=== PATIENT | male | born 1945 | race Caucasian/White ===

== ENCOUNTER → 2017-09-30 | Outpatient (CLI) | payer OTHER ==
[~2017-09-30] MED LIST: COZAAR 50 MG TA50 M2 PO; LISINOPRIL10 MG PO; MOBIC15 MG PO; NORVASC5 MG PO; OMEPRAZOLE20 M2 PO; SERTRALINE HCL50 MG PO; TRIAMCINOLONE TOP; ULTRAM50 MG PO; XANAX 0.5 MG0.5 MG PO; ZOCOR20 MG PO
[2017-09-30 10:14] LABS: ABSOLUTE EOSINOPHILS 0.1 thou/uL (0.0-0.7); ABSOLUTE LYMPHOCYTES 1.8 thou/uL (0.8-5.3); ABSOLUTE MONOCYTES 0.5 thou/uL (0.0-1.2); ABSOLUTE NEUTROPHILS 3.4 thou/uL (1.6-8.1); BASOPHILS 0.8 %; HEMATOCRIT 43.8 % (42.0-52.0); HEMOGLOBIN 14.8 gm/dL (14.0-18.0); LYMPHOCYTES 30.6 %; MCH 29.9 pg (26.0-34.0); MCHC 33.9 g/dL (28.0-37.0); MCV 88.4 fL (80.0-100.0); MONOCYTES 8.8 %; MPV 7.6 fl. (7.2-11.1); NUCLEATED RBCS 0 /100WBC; PLATELET COUNT* 174 thou/uL (150-400); POLYS 58.8 %; RBC 4.95 mil/uL (4.50-6.00); RDW-CV 14.5 % (10.5-14.5); WBC 5.8 thou/uL (4.0-11.0)
[2017-09-30 10:25] LABS: ALBUMIN 3.7 g/dL (3.4-5.0); ALKALINE PHOSPHATASE 76 U/L (46-116); ANION GAP 10 mmol/L (7-16); BUN 13 mg/dL (7-18); CALCIUM 8.6 mg/dL (8.5-10.1); CHLORIDE 103 mmol/L (98-107); CHOLESTEROL 183 mg/dL (<200); CO2 28 mmol/L (21-32); GLUCOSE 144 mg/dL (70-99); HDL CHOLESTEROL 55 mg/dL (>40); LDL CHOLESTEROL 94 mg/dL (<100); POTASSIUM 4.3 mmol/L (3.5-5.1); SGOT 19 U/L (15-37); SGPT 28 U/L (30-65); SODIUM 141 mmol/L (136-145); TC:HDL 3.3 Ratio (Not establshd); TOTAL BILIRUBIN 0.7 mg/dL (<0.1-1.0); TOTAL PROTEIN 7.1 g/dL (6.4-8.2); TRIGLYCERIDE 174 mg/dL (<150); VLDL 35 mg/dL (<40)
[2017-09-30 10:26] LABS: SERUM ASSESSMENT Clear
== END ==
LOC: M.LAB 09:52
PROVIDERS: Internal Medicine
DX: I10 Essential (primary) hypertension (principal); R79.89 Other specified abnormal findings of blood chemistry

== ENCOUNTER 2020-12-25 11:29 | Emergency (ER) | payer OTHER ==
[~2020-12-25] VITALS: Ht 177.8 cm; Wt 122.5 kg
[2020-12-25 14:31] LABS: ABSOLUTE BASOPHILS 0.1 thou/uL (0.0-0.2); ABSOLUTE LYMPHOCYTES 1.6 thou/uL (0.8-5.3); ABSOLUTE MONOCYTES 0.4 thou/uL (0.0-1.2); ABSOLUTE NEUTROPHILS 4.4 thou/uL (1.6-8.1); BASOPHILS 0.8 %; EOSINOPHILS 0.6 %; HEMOGLOBIN 15.6 gm/dL (14.0-18.0); LYMPHOCYTES 24.8 %; MCHC 35.5 g/dL (28.0-37.0); MCV 87.2 fL (80.0-100.0); MONOCYTES 6.5 %; MPV 7.9 fl. (7.2-11.1); NUCLEATED RBCS 0 /100WBC; PLATELET COUNT* 182 thou/uL (150-400); POLYS 67.3 %; RBC 5.04 mil/uL (4.50-6.00); RDW-CV 14.7 % (10.5-14.5); WBC 6.6 thou/uL (4.0-11.0)
--- NOTE | 2020-12-25 14:36 | EKG ---
[place] [address] ELECTROCARDIOGRAM REPORT Name: MANUEL ARVIZU I Room: [facility]#: [id number] Admission: 12/25/20 Attend Phys: Discharge: Date of : 41 Date of Service: 12/25/20 1419 Report #: [id number] THIS REPORT FOR: //name// [facility] ED Test Date: 2020-12-25 Test Time: 14:19:05 Pat Name: MANUEL ARVIZU Department: Room: Gender: Brick Pointer: : 1945 Requested By: Manuel Self Order Number: [id number] MD: Daniel Padron Measurements Intervals [place] Rate: 55 P: 30 NM: 219 QRS: 82 QRSD: 119 T: 55 QT: 485 QTc: 464 Interpretive Statements Sinus rhythm Borderline prolonged NM interval Nonspecific intraventricular conduction delay Baseline wander in lead(s) I,II,aVR Compared to ECG 10/28/2016 15:16:54 no change Electronically Signed On 12-25-2020 14:36:25 CDT by Daniel Padron [email or web address] <ELECTRONICALLY SIGNED> By: Daniel Padron MD, FACC 12/25/20 1436 1419 1419 Daniel Padron MD, [facility] /EPI
[2020-12-25 15:35] LABS: CALCIUM 9.5 mg/dL (8.5-10.1); CREATININE 1.1 mg/dL (0.6-1.3); POTASSIUM 4.4 mmol/L (3.5-5.1)
[2020-12-25 15:46] LABS: ALBUMIN 4.5 g/dL (3.4-5.0); TOTAL BILIRUBIN 0.8 mg/dL (<0.1-1.0); TOTAL PROTEIN 7.7 g/dL (6.4-8.2)
[2020-12-25] MEDS ORDERED: HYDROCHLOROTH12.5 M2 PO (16:19)
[2020-12-25] MEDS ORDERED: XANAX 0.25 MG0.25 MG PO (16:19)
[2020-12-25 16:32] VITALS: BP 170/110
== END 2020-12-25 16:33 | disposition home or self-care (01) ==
LOC: M.ERS 11:29
PROVIDERS: Emergency Medicine
DX: F41.9 Anxiety disorder, unspecified (principal); R06.00 Dyspnea, unspecified; R60.9 Edema, unspecified; I10 Essential (primary) hypertension; Z79.899 Other long term (current) drug therapy

== ENCOUNTER → 2021-01-05 | Outpatient (CLI) | payer OTHER ==
[~2021-01-05] MED LIST changes: +HYDROCHLOROTH12.5 M2 PO; +XANAX 0.25 MG0.25 MG PO
== END ==
LOC: M.LAB 15:06
PROVIDERS: ATTEND Internal Medicine Critical Care Medicine
DX: R06.02 Shortness of breath (principal)

== ENCOUNTER → 2021-01-09 | Outpatient (CLI) | payer OTHER ==
[2021-01-09 12:08] LABS: ALBUMIN 4.1 g/dL (3.4-5.0); CALCIUM 9.7 mg/dL (8.5-10.1); CREATININE 1.1 mg/dL (0.6-1.3); POTASSIUM 4.1 mmol/L (3.5-5.1); TOTAL BILIRUBIN 0.6 mg/dL (<0.1-1.0); TOTAL PROTEIN 7.2 g/dL (6.4-8.2)
== END ==
LOC: M.LAB 11:21
PROVIDERS: ATTEND Registered Nurse
DX: I50.32 Chronic diastolic (congestive) heart failure (principal)

== ENCOUNTER → 2021-01-15 | Outpatient (CLI) | payer OTHER | LOC: M.PUL 11:51 | PROVIDERS: ATTEND Internal Medicine Critical Care Medicine | DX: R06.02 Shortness of breath (principal) ==

== ENCOUNTER → 2021-01-20 | Outpatient (CLI) | payer OTHER | LOC: M.ULTRA 10:10 | PROVIDERS: ATTEND Internal Medicine Critical Care Medicine | DX: R60.0 Localized edema (principal) ==